=== PATIENT | female | born 1980 | race Caucasian/White ===

== ENCOUNTER → 2018-09-27 | Outpatient (CLI) | payer BC ==
--- NOTE | 2018-09-27 15:09 | RAD ---
DATE: 09/27/2018 EXAM: DIGITAL SCREEN BILAT W/CAD HISTORY: Routine screening COMPARISON: None. This current exam is a baseline. This study was interpreted with the benefit of Computerized Aided Detection (CAD). Breast Density: HETERO The breast parenchyma is heterogenously dense, which could reduce sensitivity of mammography. Breast parenchyma level C. FINDINGS: Benign-appearing bilateral axillary lymph nodes are present. No suspicious calcifications, masses, or distortion. IMPRESSION: Normal BI-RADS CATEGORY: 2 BENIGN FINDING(S) RECOMMENDED FOLLOW-UP: 12M 12 MONTH FOLLOW-UP PQRS compliance statement: Patient information was entered into a reminder system with a target due date in one year for the next mammogram. Mammography is a sensitive method for finding small breast cancers, but it does not detect them all and is not a substitute for careful clinical examination. A negative mammogram does not negate a clinically suspicious finding and should not result in delay in biopsying a clinically suspicious abnormality. "Our facility is accredited by the [employer] Mammography Program."
[2018-09-27 15:10] LABS: BASO # 0.1 x10^3/uL (0.0-0.2); BASO % 1 % (0-3); EOS # 0.2 x10^3/uL (0.0-0.7); EOS % 3 % (0-3); HEMATOCRIT 43.6 % (36.0-47.0); HEMOGLOBIN 15.1 g/dL (12.0-15.5); LYMPH # 1.7 x10^3/uL (1.0-4.8); LYMPH % 28 % (24-48); MEAN CORPUSCULAR HEMOGLOBIN 32 pg (25-35); MEAN CORPUSCULAR HGB CONC 35 g/dL (31-37); MEAN CORPUSCULAR VOLUME 91 fL (79-100); MONO # 0.4 x10^3/uL (0.0-1.1); MONO % 7 % (0-9); NEUT # 3.7 x10^3uL (1.8-7.7); NEUT % 60 % (31-73); PLATELET COUNT 386 x10^3/uL (140-400); RED BLOOD COUNT 4.79 x10^6/uL (3.50-5.40); RED CELL DISTRIBUTION WIDTH 12.5 % (11.5-14.5); WHITE BLOOD COUNT 6.1 x10^3/uL (4.0-11.0)
[2018-09-27 15:18] LABS: ALBUMIN 3.5 g/dL (3.4-5.0); ALBUMIN/GLOBULIN RATIO 0.9 (1.0-1.7); CALCIUM 8.5 mg/dL (8.5-10.1); CREATININE 0.8 mg/dL (0.6-1.0); GFR 79.4; POTASSIUM 4.1 mmol/L (3.5-5.1); TOTAL BILIRUBIN 0.4 mg/dL (0.2-1.0); TOTAL PROTEIN 7.3 g/dL (6.4-8.2)
[2018-09-28 02:07] LABS: FSH 19.4 mIU/mL (.); LUTEINIZING HORMONE 66.7 mIU/mL (.); PROGESTERONE 0.8 ng/mL (.)
[2018-09-28 03:12] LABS: RHEUMATOID FACTOR 10.5 IU/mL (0.0-13.9)
[2018-09-28 13:02] LABS: THYROID STIM HORMONE (TSH) 1.185 uIU/mL (0.358-3.740)
== END | disposition home or self-care (01) ==
LOC: LAB 14:18
PROVIDERS: ATTEND Neuromusculoskeletal Medicine & OMM
DX: Z12.31 Encounter for screening mammogram for malignant neoplasm of breast (principal); E34.9 Endocrine disorder, unspecified; N92.6 Irregular menstruation, unspecified; Z72.0 Tobacco use; Z82.8 Family history of other disabilities and chronic diseases leading to disablement, not elsewhere classified
CPT/HCPCS: 36415; 77067; 80053; 80061; 83001; 83002; 84144; 84443; 85025; 86038; 86431

== ENCOUNTER → 2018-12-26 | Outpatient (CLI) | payer BC ==
--- NOTE | 2018-12-26 15:38 | RAD ---
EXAM: Pelvic sonogram. HISTORY: Menorrhagia. TECHNIQUE: Transabdominal and transvaginal sonographic imaging of the pelvis was performed. COMPARISON: None. FINDINGS: The uterus measures 8.7 x 4.1 x 4.0 cm. The ovaries are normal in size and demonstrate normal blood flow. The endometrial stripe measures 14 mm transvaginally. There is a rounded hypoechoic lesion within the endometrial cavity and there is blood flow within the endometrium which may be due to a small polyp. There is no pelvic free fluid. IMPRESSION: 1. Thickened endometrial stripe containing a small rounded region of hypoechogenicity and blood flow possibly due to a polyp. This can be assessed with hysteroscopy or a saline hysterogram if clinically indicated. 2. Otherwise, unremarkable pelvic sonogram. Electronically signed by: Pia Pérez MD (12/26/2018 3:36 PM) [id number]
== END | disposition home or self-care (01) ==
LOC: US 14:00
PROVIDERS: ATTEND Obstetrics & Gynecology
DX: N92.0 Excessive and frequent menstruation with regular cycle (principal); N92.1 Excessive and frequent menstruation with irregular cycle
CPT/HCPCS: 76830; 76856

== ENCOUNTER 2019-08-11 13:12 | Emergency (ER) | payer BC ==
[2019-08-11 13:30] VITALS: BP 150/94
--- NOTE | 2019-08-11 13:38 | PHYS DOC ---
Adult General Chief Complaint Chief Complaint: SKIN RASH/ABSCESS HPI HPI 38-year-old female presents with left cheek insect bite. Patient believes that she got bit by something yesterday or last night. Today she noticed a tender area on her left cheek with some mild swelling. She was concerned could be a spider bite or infection. The patient states that it is pruritic and mildly painful. She denies any other injuries. She denies fever or chills. Review of Systems Review of Systems Constitutional: Denies fever or chills [] Eyes: Denies change in visual acuity, redness, or eye pain [] HENT: Denies nasal congestion or sore throat [] Respiratory: Denies cough or shortness of breath [] Cardiovascular: No additional information not addressed in HPI [] GI: Denies abdominal pain, nausea, vomiting, bloody stools or diarrhea [] : Denies dysuria or hematuria [] Musculoskeletal: Denies back pain or joint pain [] Integument: Insect bite left cheek[] Neurologic: Denies headache, focal weakness or sensory changes [] Endocrine: Denies polyuria or polydipsia [] All other systems were reviewed and found to be within normal limits, except as documented in this note. Allergies Allergies Allergies Coded Allergies Type Severity Reaction Last Updated Verified No Known Drug Allergies 08/11/19 No Physical Exam Physical Exam Constitutional: Well developed, well nourished, no acute distress, non-toxic appearance. [] HENT: Normocephalic, atraumatic, bilateral external ears normal, oropharynx moist, no oral exudates, nose normal. [] Eyes: PERRLA, EOMI, conjunctiva normal, no discharge. [] Neck: Normal range of motion, no tenderness, supple, no stridor. [] Cardiovascular:Heart rate regular rhythm, no murmur [] Lungs & Thorax: Bilateral breath sounds clear to auscultation [] Abdomen: Bowel sounds normal, soft, no tenderness, no masses, no pulsatile masses. [] Skin: Small area of tenderness of the left cheek, no palpable abscess or surro unding cellulitis; consistent with insect bite[] Back: No tenderness, no CVA tenderness. [] Extremities: No tenderness, no cyanosis, no clubbing, ROM intact, no edema. [] Neurologic: Alert and oriented X 3, normal motor function, normal sensory function, no focal deficits noted. [] Psychologic: Affect normal, judgement normal, mood normal. [] EKG EKG [] Radiology/Procedures Radiology/Procedures [] Course & Med Decision Making Course & Med Decision Making Pertinent Labs and Imaging studies reviewed. (See chart for details) Does appear the patient was bit by some kind of insect. There is no surrounding cellulitis or palpable abscess. I have advised that she monitor this and take medications as needed for itching. No antibiotics are indicated. She is stable for discharge at this time. [] Dragon Disclaimer Dragon Disclaimer This electronic medical record was generated, in whole or in part, using a voice recognition dictation system. Departure Departure: Impression: Primary Impression: Insect bite Disposition: 01 HOME, SELF-CARE Condition: STABLE Referrals: JOSE FRANCISCO GUZMAN MD (PCP) Patient Instructions: Insect Bite, Muri-rf-Oerd Problem Qualifiers Primary Impression: Insect bite Encounter type: initial encounter Site of insect bite: head Site of insect bite of head: other part Qualified Codes: S00.96XA - Insect bite (nonvenomous) of unspecified part of head, initial encounter; W57.XXXA - Bitten or stung by nonvenomous insect and other nonvenomous arthropods, initial encounter ZACK STEVE DO Aug 11, 2019 13:38
== END 2019-08-11 13:40 | disposition home or self-care (01) ==
LOC: ER 13:12
DX: S00.86XA Insect bite (nonvenomous) of other part of head, initial encounter (principal); W57.XXXA Bitten or stung by nonvenomous insect and other nonvenomous arthropods, initial encounter; Y93.89 Activity, other specified; Y92.89 Other specified places as the place of occurrence of the external cause; Y99.8 Other external cause status
CPT/HCPCS: 99281

== ENCOUNTER 2019-08-16 15:16 | Emergency (ER) | payer OTHER, BC ==
[~2019-08-16] VITALS: Ht 160 cm; Wt 77.1 kg
[2019-08-16 15:39] VITALS: BP 146/97
--- NOTE | 2019-08-16 15:50 | RAD ---
AP, lateral, and oblique views of the right hand were performed. History: Trauma after smashing fifth digit in a door Comparison: none. No fracture or dislocation is seen. The joint spaces are normal in appearance. No significant soft tissue swelling is seen. Impression: 1. Negative exam of the right hand. Electronically signed by: Cam Ayala MD (08/16/2019 3:47 PM) [id number]
[2019-08-16] MEDS ORDERED: DIPHTH,PERTUSS(ACELL),TET TOX 0.5 ML DISP.SYRIN. VAX IM ONE (16:10)
[2019-08-16] MEDS ORDERED: ACETAMINOPHEN 500 MG TABLET PO ONE (16:15)
--- NOTE | 2019-08-16 16:58 | PHYS DOC ---
Past History Past Medical History: No Pertinent History Past Surgical History: No Surgical History Alcohol Use: Occasionally Additional Alcohol Information: 3 cocktails/NOC Drug Use: None Adult General Chief Complaint Chief Complaint: FINGER INJURY HPI HPI Patient is a 38 yo f with cc of finger injury pinky finger got stuck in a door at work bleeding controlled tetanus is not up-to-date and was given here in the emergency room Current Medications Current Medications Current Medications Medications (Trade) Dose Ordered Sig/Sandi Start Time Stop Time Status Last Admin Dose Admin Acetaminophen (Tylenol) 1,000 mg 1X ONCE 08/16/19 16:15 08/16/19 16:07 DC Diphtheria/ Tetanus/Acell Pertussis (Boostrix) 0.5 ml ONCE ONCE 08/16/19 16:10 08/16/19 16:07 DC Allergies Allergies Allergies Coded Allergies Type Severity Reaction Last Updated Verified No Known Drug Allergies 08/11/19 No Physical Exam Physical Exam Constitutional: Well developed, well nourished, no acute distress, non-toxic appearance. [] HENT: Normocephalic, atraumatic, bilateral external ears normal, oropharynx moist, no oral exudates, nose normal. [] Eyes: PERRLA, EOMI, conjunctiva normal, no discharge. [] Back: No tenderness, no CVA tenderness. 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 Neurologic: Alert and oriented X 3, normal motor function, normal sensory function, no focal deficits noted. [] Psychologic: Affect normal, judgement normal, mood normal. [] Current Patient Data Vital Signs Vital Signs Date Time Temp Pulse Resp B/P (MAP) Pulse Ox O2 Delivery O2 Flow Rate FiO2 08/16/19 15:39 97.8 82 16 95 Lab Results Temperature (Fahrenheit): * 97.8 degrees F (97.6-99.5) Patient Temperature * 97.8 degrees F (97.5-99.5) Temperature Source * Oral Blood Pressure Systolic * 146 mm Hg (100-140) H Blood Pressure Diastolic * 97 mm Hg (60-100) Blood Pressure Mean * 113 mm Hg Pulse Rate * 82 beats per minute (60-90) Respiratory Rate * 16 breaths per minute (12-24) EKG EKG [] Radiology/Procedures Radiology/Procedures [] Course & Med Decision Making Course & Med Decision Making Pertinent Labs and Imaging studies reviewed. (See chart for details) []X-ray negative tenderness given Steri-Strips secured further with Dermabond patient tolerated well return precautions discussed Dragraz Disclaimer Dragon Disclaimer This electronic medical record was generated, in whole or in part, using a voice recognition dictation system. Departure Departure: Impression: Primary Impression: Laceration Disposition: 01 HOME, SELF-CARE Condition: STABLE Patient Instructions: Laceration Care, Adult, [id number] KIMBERLYN PETER MD Aug 16, 2019 16:57
== END 2019-08-16 16:07 | disposition home or self-care (01) ==
LOC: ER 15:16
DX: S61.216A Laceration without foreign body of right little finger without damage to nail, initial encounter (principal); W23.0XXA Caught, crushed, jammed, or pinched between moving objects, initial encounter; Y93.89 Activity, other specified; Y92.89 Other specified places as the place of occurrence of the external cause; Y99.8 Other external cause status
CPT/HCPCS: 12001; 73130; 99284